=== PATIENT | male | born 1970 | race Caucasian/White ===

== ENCOUNTER → 2016-11-17 | Outpatient (CLI) | payer BC ==
[~2016-11-17] MED LIST: CLR10 PO; GABA-113 PO; TRAM-10 PO
--- NOTE | 2016-11-17 11:20 | DIAGNOSTIC IMAGING REPORT ---
CHEST 2 VIEWS ROUTINE CLINICAL HISTORY: Cough. COMPARISON STUDY: Chest radiograph August 11, 2015. FINDINGS: Lung volumes are normal. Lungs are clear. There is no pneumothorax or pleural effusion. Cardiac size is normal. Mediastinal contours are normal. IMPRESSION: No acute cardiopulmonary findings. Electronically signed by: Romulo Chinchilla M.D. 11/17/2016 11:19 AM Dictated Date/Time: 11/17/2016 11:17 AM
[2016-11-19 02:28] LABS: BORDETELLA PERTUSSIS SOURCE Swab
== END | disposition home or self-care (01) ==
LOC: C.RAD 10:45
PROVIDERS: ATTEND Internal Medicine
DX: R05 Cough (principal)

== ENCOUNTER → 2017-04-06 | Outpatient (CLI) | payer BC ==
[2017-04-06 17:47] LABS: BLOOD UREA NITROGEN 17 mg/dl (7-18); BUN/CREATININE RATIO 17.1 (10-20); CALCIUM 9.2 mg/dl (8.5-10.1); CARBON DIOXIDE 28 mmol/L (21-32); CHLORIDE 106 mmol/L (98-107); GLUCOSE 109 mg/dl (70-99); POTASSIUM 4.1 mmol/L (3.5-5.1); SODIUM 142 mmol/L (136-145)
== END | disposition home or self-care (01) ==
LOC: C.LABBFT 10:58
PROVIDERS: ATTEND Physician Assistant Medical
DX: I10 Essential (primary) hypertension (principal)

== ENCOUNTER 2018-02-19 13:16 | Emergency (ER) | payer BC, OTHER ==
[~2018-02-19] VITALS: Ht 175.3 cm; Wt 103.8 kg
[2018-02-19 13:19] VITALS: TEMP 36.9; Ht 175.3 cm; Wt 103.8 kg
[2018-02-19] MEDS ORDERED: SODIUM CHLORIDE 0.9% 1000ML 1,000 ML IV STA (13:51)
[2018-02-19] MEDS ORDERED: PRLSR20 PO (14:22)
[2018-02-19] MEDS ORDERED: AMLO-110 PO (14:22)
[2018-02-19] MEDS ORDERED: FEXO1TAB49 PO (14:22)
[2018-02-19] MEDS ORDERED: CHOL1000 PO (14:22)
[2018-02-19] MEDS ORDERED: MULT-600 PO (14:22)
[2018-02-19 14:28] LABS: BASO % 0.4 %; BASO ABS # 0.03 K/uL (0-0.2); EOS ABS # 0.28 K/uL (0-0.5); HEMOGLOBIN 15.1 g/dL (14.0-18.0); IG# 0.01 K/uL (0.00-0.02); LYMPH % 20.6 %; LYMPH ABS # 1.45 K/uL (1.2-3.4); MEAN CELL VOLUME 80.8 fL (80-100); MEAN CORPUSCULAR HEMOGLOBIN 28.4 pg (25-34); MEAN CORPUSCULAR HGB CONC 35.1 g/dl (32-36); MEAN PLATELET VOLUME 10.6 fL (7.4-10.4); MONO % 6.4 %; MONO ABS # 0.45 K/uL (0.11-0.59); NEUT % 68.5 %; NEUT ABS # 4.82 K/uL (1.4-6.5); PLATELET COUNT 218 K/uL (130-400); RED CELL DISTRIBUTION WIDTH CV 13.8 % (11.5-14.5); RED CELL DISTRIBUTION WIDTH SD 41.1 fL (36.4-46.3); WHITE BLOOD COUNT 7.04 K/uL (4.8-10.8)
[2018-02-19 14:43] LABS: ALBUMIN 3.6 gm/dl (3.4-5.0); ALT/SGPT 37 U/L (12-78); AST/SGOT 23 U/L (15-37); BLOOD UREA NITROGEN 17 mg/dl (7-18); CARBON DIOXIDE 27 mmol/L (21-32); CREATININE 1.17 mg/dl (0.60-1.40); GLUCOSE 141 mg/dl (70-99); LIPASE 115 U/L (73-393); POTASSIUM 3.6 mmol/L (3.5-5.1); SODIUM 138 mmol/L (136-145)
--- NOTE | 2018-02-19 14:43 | DIAGNOSTIC IMAGING REPORT ---
CT SCAN OF THE ABDOMEN AND PELVIS WITHOUT IV CONTRAST CLINICAL HISTORY: Left flank pain and hematuria. COMPARISON STUDY: No priors. TECHNIQUE: CT scan of the abdomen and pelvis is performed from the lung bases to the proximal femora. Images are reviewed in the axial, sagittal, and coronal planes. IV contrast was not administered for this examination. A dose lowering technique was utilized adhering to the principles of ALARA. CT DOSE: 1041.85 mGycm FINDINGS: Lung bases: The heart is normal in size and without pericardial effusion. There is a small calcified granuloma at the right lung base. No airspace consolidation or pleural effusion is identified. Liver: The unenhanced liver is normal in size, contour, and attenuation. There is no intrahepatic biliary ductal dilatation. Gallbladder: Unremarkable. Spleen: Normal in size and attenuation. Pancreas: Unremarkable. Adrenal glands: Unremarkable. Kidneys: The unenhanced kidneys are normal in size and without hydronephrosis. There are no renal calculi identified. There is no evidence of contour deforming renal mass lesion. Abdominal vasculature: The abdominal aorta is normal in course and caliber. Bowel: There are scattered colonic diverticula without CT evidence of acute diverticulitis. No bowel obstruction is seen. The appendix is well-visualized and normal. Peritoneum: There is no intraperitoneal free air or abdominal ascites. There is a small fat-containing umbilical hernia. Lymphadenopathy: None. Pelvic viscera: Evaluation of the pelvis is degraded by streak artifact from a right hip arthroplasty. The bladder, prostate, and seminal vesicles are normal as visualized. Skeletal structures: No lytic or blastic lesions are seen. A right hip or other plasty is in place. IMPRESSION: There are no acute infectious or inflammatory findings in the abdomen or pelvis. Electronically signed by: Timothy Sotelo M.D. 02/19/2018 2:41 PM Dictated Date/Time: 02/19/2018 2:34 PM
[2018-02-19 14:45] LABS: PTT PATIENT 26.4 SECONDS (21.0-31.0)
[2018-02-19 14:46] LABS: ALKALINE PHOSPHATASE 84 U/L (45-117); TOTAL PROTEIN 7.3 gm/dl (6.4-8.2)
[2018-02-19 16:32] VITALS: BP 153/89; PULSE 111; O2SAT 96
--- NOTE | 2018-02-19 19:29 | EMERGENCY ROOM VISIT NOTE ---
ED Visit Note First contact with patient: 13:33 Chief Complaint: I have blood in my urine. History of Present Illness: Mr. Lake is a 47 year-old white male who ambulates into the ED complaining of hematuria and previous left lower quadrant abdominal pain. Historically patient reports significant gastrointestinal or genitourinary diseases or surgeries. Patient reports he was seen at his PCPs office for left lower quadrant pain in the middle of last week. He reports his pain was mild. He reports laboratory tests were done and he has not received the results of those testing. He was discharged home in stable condition and a follow-up appointment has been set. Patient reports approximately 1 hour before he arrived in the emergency department he noted mild cramping in the left lower quadrant. At that time he rated his discomfort 1/10. He denies radiation of the pain. He then reports he went to the bathroom and he noted katie hematuria. And in the process of urinating he a clinic in the toilet and then had resolution of his discomfort. 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 He describes his bleeding as bright red. He has not taken any medications for his pain prior to urinating. Currently he is only associated symptom is hematuria and he denies fevers, chills, sweats, skin eruptions, skin color changes, upper respiratory tract symptoms, shortness of breath, chest pain, nausea, vomiting, diarrhea, constipation, rectal bleeding, black/tarry stools, urinary symptoms, back/flank pain. Review of Systems: As noted above in history of present illness. All body systems were reviewed and found to be negative as noted above. Past Medical History: Hypertension and status post right hip and left knee arthroplasty. Current Medications: Neela, Norvasc, multivitamins, Prilosec. Allergies to Medications: Iodine, diphenhydramine. Social History: Patient is currently employed; he feels safe in his home environment; he denies tobacco use and admits to alcohol use. Physical Examination: Vital Signs: Date Time Temp Pulse Resp B/P (MAP) Pulse Ox O2 Delivery O2 Flow Rate FiO2 02/19/18 16:32 111 25 153/89 96 02/19/18 16:16 111 25 96 02/19/18 16:11 153/89 02/19/18 14:10 104 12 133/93 95 Room Air 02/19/18 14:09 107 02/19/18 14:01 133/93 02/19/18 13:19 36.9 131 18 174/90 96 Room Air GENERAL: 57-year-old male in no acute distress, nontoxic-appearing, afebrile and hemodynamically stable. NEUROLOGICAL: Awake, alert and oriented to person, place and time. Answering questions appropriately and following commands. Normal gait. Good hand eye coordination. SKIN: Warm, dry and pink. No soft tissue eruptions or trauma noted. HEENT: Atraumatic and normocephalic. PERRLA. Sclera white and conjunctiva pink. Oral cavity moist and pink. Pharynx is nonerythematous or edematous. Speech normal. No lymphadenopathy. Trachea midline. No jugular venous distention. BACK: No tenderness over the bony spine. No CVA tenderness. THORAX: Lungs sounds are clear to auscultation and equal bilaterally with symmetrical chest wall. No wheezing, rales or rhonchi. No crepitus, tenderness , subcutaneous air or deformities noted. HEART: Regular rate and rhythm. No gallops, rubs or murmurs are appreciated. ABDOMEN: Obese, soft and nontender. Positive bowel sounds in all quadrants. No guarding, rigidity or organomegaly. EXTREMITIES: Moves all extremities well on command and with purpose. All distal neurovascular statuses are intact and equal bilaterally. ED Course: Patient is assessed as noted above. Laboratory Testing: Test 02/19/18 13:37 02/19/18 14:09 Range/Units Urine Color ORANGE Urine Appearance CLEAR CLEAR Urine pH 6.0 4.5-7.5 Urine Specific [place] 1.007 1.000-1.030 Urine Protein NEG NEG Urine Glucose (UA) NEG NEG Urine Ketones NEG NEG Urine Occult Blood 3+ NEG Urine Nitrite NEG NEG Urine Bilirubin NEG NEG Urine Urobilinogen NEG NEG Urine Leukocyte Esterase NEG NEG Urine WBC (Auto) 1-5 0-5 /hpf Urine RBC (Auto) >30 0-4 /hpf Urine Hyaline Casts (Auto) 1-5 0-5 /lpf Urine Epithelial Cells (Auto) 5-10 0-5 /lpf Urine Bacteria (Auto) NEG NEG White Blood Count 7.04 4.8-10.8 K/uL Red Blood Count 5.32 4.7-6.1 M/uL Hemoglobin 15.1 14.0-18.0 g/dL Hematocrit 43.0 42-52 % Mean Corpuscular Volume 80.8 80-100 fL Mean Corpuscular Hemoglobin 28.4 25-34 pg Mean Corpuscular Hemoglobin Concent 35.1 32-36 g/dl Platelet Count 218 130-400 K/uL Mean Platelet Volume 10.6 7.4-10.4 fL Neutrophils (%) (Auto) 68.5 % Lymphocytes (%) (Auto) 20.6 % Monocytes (%) (Auto) 6.4 % Eosinophils (%) (Auto) 4.0 % Basophils (%) (Auto) 0.4 % Neutrophils # (Auto) 4.82 1.4-6.5 K/uL Lymphocytes # (Auto) 1.45 1.2-3.4 K/uL Monocytes # (Auto) 0.45 0.11-0.59 K/uL Eosinophils # (Auto) 0.28 0-0.5 K/uL Basophils # (Auto) 0.03 0-0.2 K/uL RDW Standard Deviation 41.1 36.4-46.3 fL RDW Coefficient of Variation 13.8 11.5-14.5 % Immature Granulocyte % (Auto) 0.1 % Immature Granulocyte # (Auto) 0.01 0.00-0.02 K/uL Prothrombin Time 10.3 9.0-12.0 SECONDS Prothromb Time International Ratio 1.0 0.9-1.1 Activated Partial Thromboplast Time 26.4 21.0-31.0 SECONDS Partial Thromboplastin Ratio 1.0 Sodium Level 138 136-145 mmol/L Potassium Level 3.6 3.5-5.1 mmol/L Chloride Level 106 98-107 mmol/L Carbon Dioxide Level 27 21-32 mmol/L Anion Gap 5.0 3-11 mmol/L Blood Urea Nitrogen 17 7-18 mg/dl Creatinine 1.17 0.60-1.40 mg/dl Est Creatinine Clear Calc Drug Dose 92.7 ml/min Estimated GFR () 85.5 Estimated GFR (Non- 73.8 BUN/Creatinine Ratio 14.6 10-20 Random Glucose 141 70-99 mg/dl Calcium Level 9.0 8.5-10.1 mg/dl Total Bilirubin 0.4 0.2-1 mg/dl Direct Bilirubin < 0.1 0-0.2 mg/dl Aspartate Amino Transf (AST/SGOT) 23 15-37 U/L Alanine Aminotransferase (ALT/SGPT) 37 12-78 U/L Alkaline Phosphatase 84 45-117 U/L Total Protein 7.3 6.4-8.2 gm/dl Albumin 3.6 3.4-5.0 gm/dl Lipase 115 73-393 U/L Noncontrast Abdominal/Pelvic CT: Patient was hydrated with normal saline. Patient was reassessed multiple times during his stay in the emergency department. Patient's case was reviewed with Dr. Palacios; we agreed on diagnostic approach, treatment, disposition and plan. Patient was educated about today's findings and instructed on his treatment plan ; he verbalized understanding and agreement with this plan. Clinical Impression: Hematuria. Left lower quadrant abdominal pain. Decision-Making: Initially my differential diagnosis I considered ureter calculus, diverticulitis, pyelonephritis, bladder cancer and other causes. Disposition: Patient discharged home in stable condition; prior to departure he was reassessed and subjectively reported he was feeling pain and symptom-free. Plan: Patient was encouraged to use ibuprofen or acetaminophen as needed for pain every 6 hours. Patient was encouraged to monitor his urine for worsening bleeding. Patient was encouraged to stay well-hydrated. Patient was encouraged to follow-up with urology for definitive care and treatment. Patient was encouraged return the ED for worsening bleeding, any other abnormal bleeding, fevers or any new/concerning symptoms.
== END 2018-02-19 16:34 | disposition home or self-care (01) ==
LOC: C.EDB 13:17 → C.EDC 16:34
DX: R31.9 Hematuria, unspecified (principal); R10.32 Left lower quadrant pain; I10 Essential (primary) hypertension; Z96.641 Presence of right artificial hip joint; Z96.652 Presence of left artificial knee joint; Z79.899 Other long term (current) drug therapy; Z88.8 Allergy status to other drugs, medicaments and biological substances

== ENCOUNTER 2019-06-16 20:09 | Inpatient (IN) ==
--- OUTSIDE RECORDS SUMMARY | 2019-06-16 20:11 | External Medical Summary | Continuity of Care Document ---
:1970 Author Name Leigh Sarkar, Provider Address Unavailable Unavailable , Care Team Providers Name Role Phone Unavailable Unavailable Unavailable Mesha Harrison Unavailable [email or web address] [email or web address]. Unavailable Unavailable Unavailable Unavailable Unavailable Problems Abnormal glucose (790.29) (R73.09) Rash (782.1) (R21) Skin tag (701.9) (L91.8) Community acquired pneumonia (486) (J18.9) Fever (780.60) (R50.9) Osteoarthritis (715.90) Encounter for screening for malignant neoplasm of prostate ( V76.44) (Z12.5) Acute bronchitis (466.0) (J20.9) Cough (786.2) (R05) Hypertrophy of nasal turbinates (478.0) (J34.3) Acquired deviated nasal septum (470) (J34.2) Encounter for screening for cardiovascular disorders (V81.2) (Z13.6) Muscle cramps (729.82) (R25.2) Nephrolithiasis (592.0) (N20.0) Vitamin D deficiency (268.9) (E55.9) Obstructive sleep apnea of adult (327.23) (G47.33) Extrinsic asthma (493.00) (J45.909) Disc degeneration, lumbar (722.52) (M51.36) Hypertension (401.9) (I10) Hyperlipidemia (272.4) (E78.5) Allergic rhinitis (477.9) (J30.9) Bruxism (306.8) (F45.8) Snoring (786.09) (R06.83) Fatigue (780.79) (R53.83) Wheezing (786.07) (R06.2) Tick bite (919.4) (W57.XXXA) Total Hip Replacement Conductive hearing loss of left ear (389.05) (H90.12) Chronic serous otitis media of left ear (381.10) (H65.22) Retraction of tympanic membrane of left ear (384.82) (H73.89 2) Impacted cerumen of left ear (380.4) (H61.22) Allergies and Adverse Reactions Benadryl CAPS (Allergy) Iodine SOLN (Allergy) Animal dander (Allergy) Animal dander - Cats (Allergy) Pollen (Allergy) Medications Irbesartan 300 MG Oral Tablet; TAKE 1 TABLET DAILY DIRECTED. LOU Arredondo Start: 08-Mar-2018 Quantity: 30 Refills: 5 amLODIPine Besylate 5 MG Oral Tablet; Take 1 tablet by mouth daily. VIKTOR Lambert Start: 15-Feb-2018 Quantity: 30 Refills: 5 Atorvastatin Calcium 40 MG Oral Tablet; TAKE 1 TABLET AT BEDTIME. Mello Armenta Start: 08-Mar-2018 Quantity: 30 Refills: 5 Multi For Him Oral Capsule; TAKE DIRECTED. Mello Start: 15-Feb-2018 Refills: 0 PriLOSEC OTC 20 MG Oral Tablet Delayed Release; TAKE 1 TABLET DAILY. Mello Armenta Refills: 0 Vitamin D TABS , M.DDonte Refills: 0 Neela TABS , M.DDonte Refills: 0 Procedures History of Arthroscopy Knee Left Status: Completed History of Laminectomy Lumbar Status: Co mpleted History of Hip Replacement Status: Compl eted Immunizations Diphtheria-Tetanus Toxoids 2-5 LFU Intramuscular Injectable On: 22-Jan-1999 Influenza On: Aug-2011 Family History Mother Family history of Hypertension (V17.49) Status: Active Family history of Asthma (V17.5) Status: Active Brother Family history of Denial Of Any Significant Medical History Status: Active Family history of Hypertension (V17.49) Status: Active aunt Family history of malignant neoplasm of colon (V16.0) (Z80.0 ) Status: Active Father Family history of hypertension (V17.49) (Z82.49) Status: Act vidya Social History - Smoking Status Former smoker Plan of Treatment Planned Observations Planned Goals not documented Results No Known Results Results not documented Encounters Appointment; Leo Armenta M.D. 21-Aug-2018 13:30 Encounter Diagnosis: Problem not documented Appointment; Jose Raul Palacio DO 12-Jul-2018 10:00 Encounter Diagnosis: Problem not documented Appointment; Mesha Arredondo CRNP 08-Mar-2018 16:30 Encounter Diagnosis: Problem not documented Appointment; Mesha Arredondo CRNP 15-Feb-2018 16:00 Encounter Diagnosis: Problem not documented
[2019-06-16] MEDS ORDERED: ACETAMINOPHEN 1,000 MG/100 ML VIAL IV STA (20:20)
[2019-06-16] MEDS ORDERED: SODIUM CHLORIDE 0.9% 1000ML 1,000 ML IV ONE (20:20)
[2019-06-16 20:44] LABS: Basophils # (auto) 0.02 K/uL (0-0.2); Basophils % (auto) 0.2 %; Eosinophils # (auto) 0.26 K/uL (0-0.5); Eosinophils % (auto) 2.1 %; Hematocrit (blood only) 43.3 % (42-52); Hemoglobin 14.9 g/dL (14.0-18.0); Immature Granulocytes # (auto) 0.04 K/uL (0.00-0.02); Immature Granulocytes % (auto) 0.3 %; Lymphocytes % (auto) 11.9 %; Mean Corpuscular Hgb Conc 34.4 g/dL (32-36); Mean Corpuscular Volume 80.9 fL (80-100); Mean Platelet Volume 10.7 fL (7.4-10.4); Monocytes # (auto) 1.22 K/uL (0.11-0.59); Monocytes % (auto) 9.7 %; Neutrophils # (auto) 9.54 K/uL (1.4-6.5); Neutrophils % (auto) 75.8 %; Platelet Count 216 K/uL (130-400); RDW Coefficient of Variation 14.3 % (11.5-14.5); RDW Standard Deviation 42.2 fL (36.4-46.3); Red Blood Count 5.35 M/uL (4.7-6.1); White Blood Count 12.58 K/uL (4.8-10.8)
[2019-06-16 21:02] LABS: Alanine Aminotransferase 27 U/L (12-78); Albumin Level 3.8 gm/dl (3.4-5.0); Aspartate Aminotransferase 15 U/L (15-37); Bilirubin Direct < 0.1 mg/dl (0-0.2); Blood Urea Nitrogen 10 mg/dl (7-18); Calcium 9.2 mg/dl (8.5-10.1); Carbon Dioxide 27 mmol/L (21-32); Chloride 106 mmol/L (98-107); Creatinine Clr Calc Pharmacy 102.8 ml/min; Est GFR (African American) 97.3; Est GFR (Non-African American) 83.9; Glucose 122 mg/dl (70-99); Potassium 3.5 mmol/L (3.5-5.1); Sodium 140 mmol/L (136-145)
[2019-06-16 21:05] LABS: Alkaline Phosphatase 90 U/L (45-117); Bilirubin,Total 0.4 mg/dl (0.2-1); Total Protein 7.5 gm/dl (6.4-8.2)
[2019-06-16 21:07] LABS: Appearance Urine Clear (Clear); Bilirubin Urine Negative (Negative); Blood Urine Negative (Negative); Color Urine Yellow; Glucose Urine UA Negative (Negative); Ketones Urine Negative (Negative); Leukocyte Esterase Urine Negative (Negative); Nitrite Urine Negative (Negative); Protein Urine Negative (Negative); Specific Gravity Urine 1.007 (1.000-1.030); Urobilinogen Urine Negative (Negative); pH Urine 7.5 (4.5-7.5)
[2019-06-16] MEDS ORDERED: IOVERSOL 100ml IV PRN (21:45)
--- NOTE | 2019-06-16 22:02 | CT Scan Report ---
CT OF THE ABDOMEN AND PELVIS WITH CONTRAST CLINICAL HISTORY: Left lower quadrant pain, fever and tachycardia. Evaluate for acute diverticulitis. COMPARISON STUDY: CT of the abdomen and pelvis February 19, 2018. TECHNIQUE: Following IV administration of 89 mL of Optiray-320, axial images of the abdomen and pelvi s were obtained from the lung bases to the proximal femurs. Images were reviewed in the axial, sagitt al, and coronal planes. IV contrast was administered without complication. Automated exposure contro l was utilized for the study. A dose lowering technique was utilized adhering to the principles of A NICOLETTE. CT DOSE: 1090.55 mGy.cm FINDINGS: Lung bases are clear. The liver, spleen, adrenal glands, kidneys and pancreas are normal. T here is no biliary or pancreatic ductal dilatation. No hydronephrosis is present. Colonic diverticulo sis is noted. Note is made of wall thickening of the distal descending colon with moderate associated inflammation. A few locules of extraluminal gas are noted. There is no abscess. Right hip arthroplas ty is noted. Lucency within the right acetabulum is noted. No lymphadenopathy within the abdomen or p case is noted. Major vasculature is patent. IMPRESSION: Acute diverticulitis of the distal descending colon. Small amount of adjacent extraluminal gas consis tent with microperforation. Moderate inflammation. No abscess. Electronically signed by: Romulo Chinchilla M.D. 06/16/2019 10:00 PM
[2019-06-16] MEDS ORDERED: PIPERACILLIN/TAZOBACTAM 4.5 GM/120 ML BAG IV ONE (22:30)
[2019-06-16] MEDS ORDERED: HYDROmorphone INJ 1 MG/ML SYRINGE IV STA (22:48)
--- NOTE | 2019-06-16 23:34 | History & Physical Report ---
Date of Service June 16, 2019 Assessment & Plan (1) Diverticulitis of intestine with perforation: 49-year-old male with history of hypertension, seasonal allergies, L4-L5 degenerative disc disease presents with left lower quadrant abdominal pain which started today. Found to have distal descending colon diverticulitis with evidence of microperforation, no abscess Abdominal pain: Sepsis in the setting of distal descending colon diverticulitis with microperforation Febrile to 38.7, WBC 12.5, heart rate elevated to 110s, hypertensive LFT and lipase within normal limits CT abdomen:Distal descending colon diverticulitis with microperforation, no abscess Started on Zosyn in the ED, continue Zofran as needed for nausea Tylenol IV as needed and morphine as needed for pain N.p.o. for potential surgical intervention if patient deteriorates, on IV fluids LR 125 cc/h Continue to monitor clinically History of daily alcohol use Drinks 1-2 beers per day Reports going without drinking for months and denies any withdrawal symptoms or seizures Not started on alcohol withdrawal protocol this time Hypertension Patient reports being on medications but the medications did not help and thus he stopped taking them Recommend outpatient close follow-up for blood pressure Started on Lopressor 5 mg IV every 6 hours PRN for systolic blood pressure greater than 180 or diastolic blood pressure greater than 100 given elevated heart rate Allergies Continue home Neela DVT prophylaxis: SCDs, encourage ambulation, low risk Code: Full Disposition: PCU telemetry (2) HTN (hypertension): (3) Allergies: History of Present Illness Chief Complaint: LLQ abdominal pain Primary Care Provider: Leo Armenta MD 49-year-old male with history of hypertension, seasonal allergies, L4-L5 degenerative disc disease presents with left lower quadrant abdominal pain which started today. Reports pain started once patient was at work and got pr ogressively worse throughout the day. Developed fever and chills when patient arrived home from work at which point abdominal pain had worsened this patient came to the emergency room. Denies any nausea, vomiting, diarrhea, constipation, hematochezia, melena, hematuria, dysuria, chest pain, shortness of breath, headache, lightheadedness. No previous episodes of similar pain or diverticulitis. Patient has not had a colonoscopy yet. Past surgical history: L4-L5 microdiscectomy in 2012, left knee replacement, right hip replacement Social history: Patient reports drinking 1-2 beers per day has gone months without drinking and denies any withdrawal symptoms or seizures Allergies Allergy/AdvReac Type Severity Reaction Status Date / Time diphenhydramine Allergy Unknown Hives Unverified 06/16/19 20:55 iodine Allergy Unknown Rash,Itchin Unverified 06/16/19 20:55 g Home Medications Home Medications Medication Instructions Recorded Confirmed Type fexofenadine [Neela Allergy] 180 mg PO DAILY 06/16/19 06/16/19 History Past Med/Surg History Medical History No significant past medical history Social History Preferred Language: Tristanian Communication Ability: Effective Beliefs That Will Affect Care: None Current Living Situation: Spouse Feels Safe at Home: Yes Smoking Status: Former smoker Hx Alcohol Use: Yes Alcohol type: beer Hx Substance Use: No Review of Systems Review of Systems: As per HPI Physical Exam Physical Exam: General: In NAD HEENT: moist mucous membranes Neuro: A&O x 4 Pulm: CTAB equal breath sounds bilaterally CV: RRR, no m/r/g Abdomen:+BS, L sided abdominal TTP > over LLQ region, tympanic and somewhat distended, no rebound tenderness LE: no LE edema, no calf TTP Results & Data Vital Signs (Past 12 Hours) Vital Signs Temp Pulse Pulse Resp BP BP Pulse Ox 06/16/19 22:40 100 H 18 150/105 H 94 06/16/19 20:15 38.7 C H 117 H 20 180/94 H 95 Laboratory Results Abnormal lab results 06/16/19 06/16/19 Range/Units 20:36 20:36 WBC 12.58 H (4.8-10.8) K/uL MPV 10.7 H (7.4-10.4) fL Immature Gran # (Auto) 0.04 H (0.00-0.02) K/uL Neut # (Auto) 9.54 H (1.4-6.5) K/uL [place] # (Auto) 1.22 H (0.11-0.59) K/uL Glucose 122 H (70-99) mg/dl Diagnostic Findings CT OF THE ABDOMEN AND PELVIS WITH CONTRAST CLINICAL HISTORY: Left lower quadrant pain, fever and tachycardia. Evaluate for acute diverticulitis. COMPARISON STUDY: CT of the abdomen and pelvis February 19, 2018. TECHNIQUE: Following IV administration of 89 mL of Optiray-320, axial images of the abdomen and pelvis were obtained from the lung bases to the proximal femurs. Images were reviewed in the axial, sagittal, and coronal planes. IV contrast was administered without complication. Automated exposure control was utilized for the study. A dose lowering technique was utilized adhering to the principles of ALARA. CT DOSE: 1090.55 mGy.cm FINDINGS: Lung bases are clear. The liver, spleen, adrenal glands, kidneys and pancreas are normal. There is no biliary or pancreatic ductal dilatation. No hydronephrosis is present. Colonic diverticulosis is noted. Note is made of wall thickening of the distal descending colon with moderate associated inflammation. A few locules of extraluminal gas are noted. There is no abscess. Right hip arthroplasty is noted. Lucency within the right acetabulum is noted. No lymphadenopathy within the abdomen or pelvis is noted. Major vasculature is patent. IMPRESSION: Acute diverticulitis of the distal descending colon. Small amount of adjacent extraluminal gas consistent with microperforation. Moderate inflammation. No abscess. Code Status & VTE Plan Code Status Full VTE Prophylaxis Plan VTE Prophylaxis will be ordered: Yes Supervising Physician Co-Signing Physician Notes Attending addendum: I have physically seen this patient, have supervised the medical residents activities, and agree with the H&P unless as otherwise noted. Assessment and Plan: Acute diverticulitis of distal descending colon with microperforation- N.p.o. Continue Zosyn IV begun in ED. Acetaminophen 1 g IV every 8 hours PRN mild pain or temperature. Morphine 2 mg IV every 4 hours as needed severe pain. LR at 125 mils per hour. Famotidine 20 mg IV every 12 hours. Follow serial laboratories. Consult general surgery. Remaining orders and notations as noted. PG Care Time/CCT Total # of Minutes Spent Total Time Spent with Patient: Total time spent is greater than 50% in coordination of care (as documented) at patient's floor/unit and/or counseling patient: Resident Activity Tracking Resident Involvement: Resident Care Provided Care Provided: Adult Hospital Medicine (1) Diverticulitis of intestine with perforation Diverticulitis bleeding: unspecified bleeding status Diverticulitis site: unspecified part of intestinal tract Qualified Code(s): K57.80 - Diverticulitis of intestine, part unspecified, with perforation and abscess without bleeding
--- NOTE | 2019-06-16 23:39 | Emergency Department Note ---
Entered by Camille Downey acting as a scribe for Valdo Herrera History of Present Illness General Chief complaint: Abdominal Pain Stated complaint: ABDOMINAL PAIN Time Seen by Provider: 06/16/19 20:18 Source: patient History of Present Illness Provider complaint: abdominal pain Onset (ago): hour(s) (this morning ) Location: abdomen and left (lower ) Pain Consistency: + constant Maximum Pain Intensity: 10 Relieved By: + none Associated symptoms: + other (-diarrhea, -pain during urination, -bloody or dark stools, ); no cough and no nausea/vomiting The patient is a 49 year old male who presents to the Emergency Room with complaints of constant left lower abdominal pain that started this morning. He denies any nausea, vomiting, diarrhea, pain during urination, bloody or dark s tools, or cough. He reports having a fever that began earlier tonight. Pain does not radiate. Pain is severe in nature. Home Medications Home Medications Medication Instructions Recorded Confirmed Type fexofenadine [Neela Allergy] 180 mg PO DAILY 06/16/19 06/16/19 History Allergies Allergy/AdvReac Type Severity Reaction Status Date / Time diphenhydramine Allergy Unknown Hives Unverified 06/16/19 20:55 iodine Allergy Unknown Rash,Itchin Unverified 06/16/19 20:55 g Past Med/Surg History Medical History No significant past medical history Social History Preferred Language: Zimbabwean Feels Safe at Home: Yes Smoking Status: Never smoker Review of Systems See HPI for pertinent positives & negatives. and A total of 10 systems reviewed and were otherwise negative Physical Exam Vital Signs Vital Signs - 24 hr 06/16/19 20:15 06/16/19 22:40 Temperature 38.7 C H Temperature Source Oral Sepsis Recent Fever Within 48 Hours No Sepsis New/Unexplained Change in Mental Status No Sepsis Action Taken by Nursing No Action Required Pulse Rate 117 H Pulse Rate [Finger] 100 H Respiratory Rate 20 18 Blood Pressure 180/94 H Blood Pressure [Right Arm] 150/105 H Blood Pressure Mean 122 Blood Pressure Mean [Right Arm] 120 Pulse Oximetry 95 94 Oxygen Delivery Method Room Air Physical Exam GENERAL: He is oriented to person, place, and time. He appears well-developed and well-nourished. He does not appear distressed. ____ HENT: Exam performed. - Head: Normocephalic and atraumatic. - Right Ear: External ear normal. No mastoid tenderness. - Left Ear: External ear normal. No mastoid tenderness. - Mouth/Throat: The oropharynx is clear and moist. No trismus in the jaw. No dental abscesses or uvula swelling. No oropharyngeal exudate or tonsillar absces ses. ____ EYES: Conjunctivae and EOM are normal. Pupils are equal, round, and reactive to light. Right eye exhibits no discharge. Left eye exhibits no discharge. No scleral icterus. ____ NECK: Normal range of motion. Neck supple. No JVD present. No spinous process tenderness present. No carotid bruit present. No rigidity. No tracheal deviation and normal range of motion present. No Brudzinski's sign and no Kernig's sign noted. ____ CV: Normal rate, regular rhythm, normal heart sounds and intact distal pulses. There is no peripheral edema. Palpable radial pulses bue. ____ PULM/CHEST: Effort normal and breath sounds normal. No respiratory distress. No stridor. He has no wheezes. He has no rales. - Chest Wall: He exhibits no tenderness. ____ ABD: The abdomen is soft. Bowel sounds are normal. He has no distension. No mass is present. Pain on palpation of left lower quadrant. There is no rebound, no guarding, no Tracey's sign and no tenderness at McBurney's point. Rovsig negative MUSC/SKEL: Normal range of motion. There is no peripheral edema, tenderness or deformity. LYMPH: No cervical adenopathy. ____ NEURO: He is alert and oriented to person, place, and time. He has normal strength. No cranial nerve deficit or sensory deficit. Coordination and gait normal. GCS eye subscore is 4. GCS verbal subscore is 5. GCS motor subscore is 6. cerbellar tests wnl. ____ SKIN: Skin is warm and dry. He is not diaphoretic. ____ PSYCH: He has a normal mood and affect. His behavior is normal. Judgment and thought content normal. ____ Course 2019: The patient was evaluated in room C2B, and a complete history and physical examination were performed. 2235: Labs show leukocytosis of 12.[address] shows diverticulitis with micrope rforation. I discussed with Dr. Quinonez- [facility] General Surgery, he recommends that the patient be admitted to the hospitalist service and that he will be on consult. Dr. Horton- [facility] Hospitalist, was notified and IV antibiotics Zosyn were given. Administered Medications Piperacillin Sod/Tazobactam Sod (Zosyn) 4.5 gm in 120 mls @ 30 mls/hr IV NOW ONE Stop: 06/17/19 02:29 Last Admin: 06/16/19 22:41 Dose: 30 mls/hr Documented by: [id number] Ioversol (Optiray 320 100ml) 89 ml IV ONCE PRN PRN Reason: Interaction Checking Stop: 06/20/19 21:44 Last Admin: 06/16/19 21:46 Dose: 89 ml Documented by: [id number] Discontinued Medications Hydromorphone HCl (Dilaudid) 1 mg IV NOW STA Stop: 06/16/19 22:49 Last Admin: 06/16/19 22:59 Dose: 1 mg Documented by: [id number] Acetaminophen (Ofirmev) 1,000 mg in 100 mls @ 400 mls/hr IV NOW STA Stop: 06/16/19 20:34 Last Infusion: 06/16/19 21:37 Dose: 0 mls/hr Documented by: [id number] Admin: 06/16/19 20:46 Dose: 400 mls/hr Documented by: [id number] Sodium Chloride (Nss 1000ml) 1,000 mls @ 999 mls/hr IV .Q1H1M ONE Stop: 06/16/19 21:20 Last Infusion: 06/16/19 22:43 Dose: 0 mls/hr Documented by: [id number] Admin: 06/16/19 20:46 Dose: 999 mls/hr Documented by: [id number] Medical Decision Making Medical Records Attestation: I reviewed the patient's medical records. Home Medications Current Medication List: was personally reviewed by me Laboratory Data Attestation: I reviewed the patient's lab results. Result diagrams: 06/16/19 20:36 06/16/19 20:36 Lab Results 06/16/19 06/16/19 06/16/19 Range/Units 20:36 20:36 20:37 WBC 12.58 H (4.8-10.8) K/uL RBC 5.35 (4.7-6.1) M/uL Hgb 14.9 (14.0-18.0) g/dL Hct 43.3 (42-52) % MCV 80.9 (80-100) fL MCH 27.9 (25-34) pg MCHC 34.4 (32-36) g/dL RDW Std Deviation 42.2 (36.4-46.3) fL RDW Coeff of Rangel 14.3 (11.5-14.5) % Plt Count 216 (130-400) K/uL MPV 10.7 H (7.4-10.4) fL Immature Gran % (Auto) 0.3 % Neut % (Auto) 75.8 % Lymph % (Auto) 11.9 % [place] % (Auto) 9.7 % Eos % (Auto) 2.1 % Baso % (Auto) 0.2 % Immature Gran # (Auto) 0.04 H (0.00-0.02) K/uL Neut # (Auto) 9.54 H (1.4-6.5) K/uL Lymph # (Auto) 1.50 (1.2-3.4) K/uL [place]hing # (Auto) 1.22 H (0.11-0.59) K/uL Eos # (Auto) 0.26 (0-0.5) K/uL Baso # (Auto) 0.02 (0-0.2) K/uL Sodium 140 (136-145) mmol/L Potassium 3.5 (3.5-5.1) mmol/L Chloride 106 (98-107) mmol/L Carbon Dioxide 27 (21-32) mmol/L Anion Gap 8.0 (3-11) BUN 10 (7-18) mg/dl Creatinine 1.04 (0.6-1.4) mg/dl Est Cr Clr Drug Dosing 102.8 ml/min Est GFR ( Amer) 97.3 Est GFR (Non-Af Amer) 83.9 BUN/Creatinine Ratio 10.0 (10-20) Glucose 122 H (70-99) mg/dl Calcium 9.2 (8.5-10.1) mg/dl Total Bilirubin 0.4 (0.2-1) mg/dl Direct Bilirubin < 0.1 (0-0.2) mg/dl AST 15 (15-37) U/L ALT 27 (12-78) U/L Alkaline Phosphatase 90 (45-117) U/L Total Protein 7.5 (6.4-8.2) gm/dl Albumin 3.8 (3.4-5.0) gm/dl Lipase 78 (73-393) U/L Urine Color Yellow Urine Appearance Clear (Clear) Urine pH 7.5 (4.5-7.5) Ur Specific [place] 1.007 (1.000-1.030) Urine Protein Negative (Negative) Urine Glucose (UA) Negative (Negative) Urine Ketones Negative (Negative) Urine Blood Negative (Negative) Urine Nitrite Negative (Negative) Urine Bilirubin Negative (Negative) Urine Urobilinogen Negative (Negative) Ur Leukocyte Esterase Negative (Negative) Imaging Data Radiologist's Impression: Radiology results as stated below per my review and the radiologist's interpretation: CT OF THE ABDOMEN AND PELVIS WITH CONTRAST CLINICAL HISTORY: Left lower quadrant pain, fever and tachycardia. Evaluate for acute diverticulitis. COMPARISON STUDY: CT of the abdomen and pelvis February 19, 2018. TECHNIQUE: Following IV administration of 89 mL of Optiray-320, axial images of the abdomen and pelvis were obtained from the lung bases to the proximal femurs. Images were reviewed in the axial, sagittal, and coronal planes. IV contrast was administered without complication. Automated exposure control was utilized for the study. A dose lowering technique was utilized adhering to the principles of ALARA. CT DOSE: 1090.55 mGy.cm FINDINGS: Lung bases are clear. The liver, spleen, adrenal glands, kidneys and pancreas are normal. There is no biliary or pancreatic ductal dilatation. No hydronephrosis is present. Colonic diverticulosis is noted. Note is made of wall thickening of the distal descending colon with moderate associated inflammation. A few locules of extraluminal gas are noted. There is no abscess. Right hip arthroplasty is noted. Lucency within the right acetabulum is noted. No lymphadenopathy within the abdomen or pelvis is noted. Major vasculature is patent. IMPRESSION: Acute diverticulitis of the distal descending colon. Small amount of adjacent extraluminal gas consistent with microperforation. Moderate inflammation. No abscess. Electronically signed by: Romulo Chinchilla M.D. 06/16/2019 10:00 PM Blood Pressure Blood Pressure Findings: Elevated blood pressure Blood Pressure Disposition: further management by hospitalist MDM Narrative Labs show leukocytosis of 12.[address] shows diverticulitis with microperforation. I discussed with Dr. Quinonez- [facility] General Surgery, he recommends that the patient be admitted to the hospitalist service and that he will be on consult. Dr. Horton- [facility] Hospitalist, was notified and IV antibiotics Zosyn were given. Impression & Plan Diverticulitis of intestine with perforation Discharge Plan Visit Data Chief Complaint: Abdominal Pain Stated Complaint: ABDOMINAL PAIN ED Provider: Valdo Herrera Discharge Problem: Diverticulitis of intestine with perforation Patient Disposition: Being Evaluated by Hospitalist Forms Stand Alone Forms: Call Back Authorization, [facility] Prescriptions Prescriptions: No Action fexofenadine [Neela Allergy] 180 mg Tablet 180 mg PO DAILY RF: 0 Referrals Referrals: Derrick Armenta MD [Primary Care Provider] - Discharge Problem: Diverticulitis of intestine with perforation Qualifiers: Diverticulitis site: unspecified part of intestinal tract Diverticulitis bleeding: unspecified bleeding status Qualified Code(s): K57.80 - Diverticulitis of intestine, part unspecified, with perforation and abscess without bleeding The scribe's documentation has been prepared under my direction and personally reviewed by me in its entirety. I confirm that the note above accurately reflects all work, treatment, procedures, and medical decision making performed by me.
[2019-06-17] MEDS ORDERED: METOPROLOL TARTRATE 1 MG/ML VIAL IV PRN (00:50)
[2019-06-17] MEDS ORDERED: PIPERACILL/TAZOBAC CONSULT ACTIVE PRN (00:50)
[2019-06-17] MEDS ORDERED: ONDANSETRON INJ 2 MG/ML 2 ML VIAL IV PRN (00:50)
[2019-06-17] MEDS: LACTATED RINGER'S 1,000 ML IV SCH ×3 (01:18→16:26)
[2019-06-17] MEDS: MoRPHine SULFATE 2 MG/ML CARP IV PRN ×2 (02:59→16:27)
[2019-06-17] MEDS: PIPERACILLIN/TAZOBACTAM 4.5 GM in DEXTROSE 5% 100 ML IV SCH ×3 (03:35→19:56)
[2019-06-17] MEDS ORDERED: PIPERACILLIN/TAZOBACTAM 4.5 GM in DEXTROSE 5% 100 ML IV SCH (06:00)
[2019-06-17] MEDS ORDERED: LORazepam 0.5 MG TAB ONE (06:08)
[2019-06-17 06:37] LABS: Basophils # (auto) 0.02 K/uL (0-0.2); Basophils % (auto) 0.2 %; Eosinophils # (auto) 0.11 K/uL (0-0.5); Eosinophils % (auto) 0.9 %; Immature Granulocytes # (auto) 0.03 K/uL (0.00-0.02); Immature Granulocytes % (auto) 0.2 %; Lymphocytes # (auto) 1.16 K/uL (1.2-3.4); Mean Corpuscular Hgb Conc 33.3 g/dL (32-36); Mean Corpuscular Volume 81.4 fL (80-100); Mean Platelet Volume 10.5 fL (7.4-10.4); Monocytes # (auto) 1.05 K/uL (0.11-0.59); Monocytes % (auto) 8.2 %; Neutrophils # (auto) 10.46 K/uL (1.4-6.5); Neutrophils % (auto) 81.5 %; Platelet Count 189 K/uL (130-400); RDW Coefficient of Variation 14.4 % (11.5-14.5); RDW Standard Deviation 42.9 fL (36.4-46.3); Red Blood Count 5.16 M/uL (4.7-6.1); White Blood Count 12.83 K/uL (4.8-10.8)
[2019-06-17] MEDS: FEXOFENADINE HCL 180 MG TAB PO SCH (07:59)
--- NOTE | 2019-06-17 09:22 | Surgery Consultation ---
Date of Consultation June 17, 2019 Assessment & Plan (1) Diverticulitis of intestine with perforation: 49 year-old male presented to emergency department with 1 day history of LLQ abdominal pain and associated fevers. CT scan showing distal descending diverticulitis with microperforation however no abscess. Febrile on admission, tachycardic, and leukocytosis of 12K. Pain improved today but still feeling bloated. Passing flatus. Leukocytosis stable. Abdomen is distended but soft, tender in LLQ no peritonitis or rigidity. Plan: Continue conservative treatment with bowel rest, IV fluids, IV Zosyn, IV Zofran prn nausea, and IV Pain medications as needed repeat am labs Will need outpatient colonoscopy in 6-8 weeks Will continue to follow Dr. Lea was present during my examination and agrees with above. History of Present Illness Reason for Consultation: Diverticulitis with microperforation Requesting Physician: MD Wes Attending Physician: Julianna Harvey MD History of Present Illness 49 year-old male who presented to emergency department with complaint fo left lower quadrant abdominal pain that began yesterday with associated fevers. States pain was sharp and 10/10 on admission. No prior history of similar pain. Denies of any nausea, vomiting, changes in bowel habits, diarrhea, constipation, blood in stools. CT scan showing diverticulitis of the distal descending colon with microperforation however no abscess. Febrile on admission. No prior history of diverticulitis. Has not had screening colonoscopy. No family history of diverticulitis. Since admission, abdominal pain has improved. Currently rating 6/10. Nonausea or vomiting. Labs show stable leukocytosis of 12K. Allergies Allergy/AdvReac Type Severity Reaction Status Date / Time diphenhydramine Allergy Unknown Hives Unverified 06/16/19 20:55 iodine Allergy Unknown Rash,Itchin Unverified 06/16/19 20:55 g Home Medications Home Medications Medication Instructions Recorded Confirmed Type fexofenadine [Neela Allergy] 180 mg PO DAILY 06/16/19 06/16/19 History Patient History Medical History No significant past medical history Social History Preferred Language: Australian Communication Ability: Effective Beliefs That Will Affect Care: None Current Living Situation: Spouse Feels Safe at Home: Yes Smoking Status: Former smoker Hx Alcohol Use: Yes Alcohol type: beer Hx Substance Use: No Review of Systems Review of Systems: All systems reviewed & are unremarkable except as noted in HPI & below Physical Exam Constitutional: WD/WN, vitals as above not ill appearing Respiratory: normal respiratory effort, lungs clear to auscultation Cardiovascular: Rate/Rhythm: regular rate, regular rhythm and + tachycardic Heart Sounds: normal S1 and normal S2 Gastrointestinal (Abdomen): Inspection/Auscultation: abdomen normal to inspection, + abdomen distended and normal bowel sounds Percussion/Palpation: + abdomen tender (LLQ on deep palpation) and abdomen soft; no guarding and abdomen not rigid Skin: no rashes, warm and dry Psychiatric: A+Ox3, euthymic affect Results & Data Vital Signs (Past 12 Hours) Vital Signs Temp Pulse Pulse Resp BP Pulse Ox 06/17/19 07:24 37.5 C 102 H 18 150/97 H 94 06/17/19 03:39 37.0 C 94 H 16 166/87 H 95 06/17/19 00:45 37.0 C 100 H 18 166/98 H 95 06/17/19 00:32 92 H 18 93 06/16/19 23:53 37.3 C 06/16/19 22:40 100 H 18 150/105 H 94 Laboratory Results 06/17/19 06/16/19 06/16/19 Range/Units 06:11 20:37 20:36 WBC 12.83 H (4.8-10.8) K/uL RBC 5.16 (4.7-6.1) M/uL Hgb 14.0 (14.0-18.0) g/dL Hct 42.0 (42-52) % MCV 81.4 (80-100) fL MCH 27.1 (25-34) pg MCHC 33.3 (32-36) g/dL RDW Std Deviation 42.9 (36.4-46.3) fL RDW Coeff of Rangel 14.4 (11.5-14.5) % Plt Count 189 (130-400) K/uL MPV 10.5 H (7.4-10.4) fL Immature Gran % (Auto) 0.2 % Neut % (Auto) 81.5 % Lymph % (Auto) 9.0 % [place] % (Auto) 8.2 % Eos % (Auto) 0.9 % Baso % (Auto) 0.2 % Immature Gran # (Auto) 0.03 H (0.00-0.02) K/uL Neut # (Auto) 10.46 H (1.4-6.5) K/uL Lymph # (Auto) 1.16 L (1.2-3.4) K/uL [place] # (Auto) 1.05 H (0.11-0.59) K/uL Eos # (Auto) 0.11 (0-0.5) K/uL Baso # (Auto) 0.02 (0-0.2) K/uL Sodium 140 (136-145) mmol/L Potassium 3.5 (3.5-5.1) mmol/L Chloride 106 (98-107) mmol/L Carbon Dioxide 27 (21-32) mmol/L Anion Gap 8.0 (3-11) BUN 10 (7-18) mg/dl Creatinine 1.04 (0.6-1.4) mg/dl Est Cr Clr Drug Dosing 102.8 ml/min Est GFR ( Amer) 97.3 Est GFR (Non-Af Amer) 83.9 BUN/Creatinine Ratio 10.0 (10-20) Glucose 122 H (70-99) mg/dl Calcium 9.2 (8.5-10.1) mg/dl Total Bilirubin 0.4 (0.2-1) mg/dl Direct Bilirubin < 0.1 (0-0.2) mg/dl AST 15 (15-37) U/L ALT 27 (12-78) U/L Alkaline Phosphatase 90 (45-117) U/L Total Protein 7.5 (6.4-8.2) gm/dl Albumin 3.8 (3.4-5.0) gm/dl Lipase 78 (73-393) U/L Urine Color Yellow Urine Appearance Clear (Clear) Urine pH 7.5 (4.5-7.5) Ur Specific [place] 1.007 (1.000-1.030) Urine Protein Negative (Negative) Urine Glucose (UA) Negative (Negative) Urine Ketones Negative (Negative) Urine Blood Negative (Negative) Urine Nitrite Negative (Negative) Urine Bilirubin Negative (Negative) Urine Urobilinogen Negative (Negative) Ur Leukocyte Esterase Negative (Negative) 06/16/19 Range/Units 20:36 WBC 12.58 H (4.8-10.8) K/uL RBC 5.35 (4.7-6.1) M/uL Hgb 14.9 (14.0-18.0) g/dL Hct 43.3 (42-52) % MCV 80.9 (80-100) fL MCH 27.9 (25-34) pg MCHC 34.4 (32-36) g/dL RDW Std Deviation 42.2 (36.4-46.3) fL RDW Coeff of Rangel 14.3 (11.5-14.5) % Plt Count 216 (130-400) K/uL MPV 10.7 H (7.4-10.4) fL Immature Gran % (Auto) 0.3 % Neut % (Auto) 75.8 % Lymph % (Auto) 11.9 % [place] % (Auto) 9.7 % Eos % (Auto) 2.1 % Baso % (Auto) 0.2 % Immature Gran # (Auto) 0.04 H (0.00-0.02) K/uL Neut # (Auto) 9.54 H (1.4-6.5) K/uL Lymph # (Auto) 1.50 (1.2-3.4) K/uL [place] # (Auto) 1.22 H (0.11-0.59) K/uL Eos # (Auto) 0.26 (0-0.5) K/uL Baso # (Auto) 0.02 (0-0.2) K/uL Sodium (136-145) mmol/L Potassium (3.5-5.1) mmol/L Chloride (98-107) mmol/L Carbon Dioxide (21-32) mmol/L Anion Gap (3-11) BUN (7-18) mg/dl Creatinine (0.6-1.4) mg/dl Est Cr Clr Drug Dosing ml/min Est GFR ( Amer) Est GFR (Non-Af Amer) BUN/Creatinine Ratio (10-20) Glucose (70-99) mg/dl Calcium (8.5-10.1) mg/dl Total Bilirubin (0.2-1) mg/dl Direct Bilirubin (0-0.2) mg/dl AST (15-37) U/L ALT (12-78) U/L Alkaline Phosphatase (45-117) U/L Total Protein (6.4-8.2) gm/dl Albumin (3.4-5.0) gm/dl Lipase (73-393) U/L Urine Color Urine Appearance (Clear) Urine pH (4.5-7.5) Ur Specific [place] (1.000-1.030) Urine Protein (Negative) Urine Glucose (UA) (Negative) Urine Ketones (Negative) Urine Blood (Negative) Urine Nitrite (Negative) Urine Bilirubin (Negative) Urine Urobilinogen (Negative) Ur Leukocyte Esterase (Negative) Diagnostic Findings CT OF THE ABDOMEN AND PELVIS WITH CONTRAST CLINICAL HISTORY: Left lower quadrant pain, fever and tachycardia. Evaluate for acute diverticulitis. COMPARISON STUDY: CT of the abdomen and pelvis February 19, 2018. TECHNIQUE: Following IV administration of 89 mL of Optiray-320, axial images of the abdomen and pelvis were obtained from the lung bases to the proximal femurs. Images were reviewed in the axial, sagittal, and coronal planes. IV contrast was administered without complication. Automated exposure control was utilized for the study. A dose lowering technique was utilized adhering to the principles of ALARA. CT DOSE: 1090.55 mGy.cm FINDINGS: Lung bases are clear. The liver, spleen, adrenal glands, kidneys and pancreas are normal. There is no biliary or pancreatic ductal dilatation. No hydronephrosis is present. Colonic diverticulosis is noted. Note is made of wall thickening of the distal descending colon with moderate associated inflammation. A few locules of extraluminal gas are noted. There is no abscess. Right hip arthroplasty is noted. Lucency within the right acetabulum is noted. No lymphadenopathy within the abdomen or pelvis is noted. Major vasculature is patent. IMPRESSION: Acute diverticulitis of the distal descending colon. Small amount of adjacent extraluminal gas consistent with microperforation. Moderate inflammation. No abscess. (1) Diverticulitis of intestine with perforation Diverticulitis bleeding: unspecified bleeding status Diverticulitis site: unspecified part of intestinal tract Qualified Code(s): K57.80 - Diverticulitis of intestine, part unspecified, with perforation and abscess without bleeding
--- NOTE | 2019-06-17 09:30 | Family Medicine Progress Note ---
Date of Service June 17, 2019 Assessment & Plan (1) Diverticulitis of intestine with perforation: Mr. Lake is a 49-year-old male with history of hypertension, seasonal allergies, L4-L5 degenerative disc disease who presented to [facility] with a 1 day history of left lower quadrant abdominal pain. He was found to have distal descending colon diverticulitis with evidence of microperforation, no abscess Sepsis secondary to distal descending colon diverticulitis with microperforation - initially presented with a fever to 38.7, WBC 12.5, and tachycardia - CT abdomen: Distal descending colon diverticulitis with microperforation, no abscess - Started on Zosyn in the ED, continue IV abx until improvement in abdominal tenderness -> can transition to augmentin or cipro/flagyl on d/c for a total of 10 days - Zofran as needed for nausea - Tylenol IV as needed and morphine as needed for pain - remains n.p.o, will advance diet to clears later this afternoon provided his pain improves - continue LR at 125 mls/hr until tolerating PO - afebrile since admission, abdominal pain improving - general surgery consulted, thank you for recommendations -> continue conservative treatment -> outpatient colonoscopy in 6-8 weeks History of daily alcohol use - Drinks 1-2 beers per day - Reports going without drinking for months and denies any withdrawal symptoms or seizures - Not started on alcohol withdrawal protocol this time, continue to monitor Hypertension - not currently on medications for this. Patient reports being on medications in the past, but he stopped taking them - discussed w/patient this AM. He will f/u with his PCP to discuss this - he states his home BPs are usually 150s systolic, and would therefore benefit from treatment Allergies - Continue home Neela DVT prophylaxis: SCDs, encourage ambulation, low risk Code: Full Disposition: Transfer to med/surg today (2) HTN (hypertension): (3) Allergies: Supervising Physician Co-Signing Physician Notes Resident Physician Supervision Note: I independently interviewed and examined the patient and verified the guajardo history and physical, reviewed labs and image studies, discussed the case with the resident Dr. Valencia and agree with the findings and care plan. Subjective Mr. Lake reports he feels improved today. He states his abdominal pain is down to a 6/10. He denies having any bowel movements today, and states his last bowel movement was yesterday afternoon. He denies fever, chills. He has never had a colonoscopy before, and this is first episode of diverticulitis. He does note that he was on blood pressure medications in the past, however never saw improvement in his blood pressure despite taking the medications, so he stopped taking them. He states he normally runs in the 150s systolic at home. Review of Systems Constitutional: no fever, no chills and no fatigue Respiratory: no cough and no dyspnea Cardiovascular: no chest pain, no palpitations and no edema Gastrointestinal: + abdominal pain; no nausea, no vomiting and no change in bowel habits Physical Exam Constitutional: WD/WN, vitals as above Respiratory: normal respiratory effort, lungs clear to auscultation Cardiovascular: RRR, no murmur, no edema Gastrointestinal (Abdomen): Inspection/Auscultation: + abdomen distended Percussion/Palpation: + abdomen tender (Minimally tender in left lower quadrant) and abdomen soft; no guarding and abdomen not rigid Skin: no rashes, warm and dry Results & Data Vital Signs (Past 12 Hours) Vital Signs Temp Pulse Pulse Resp BP Pulse Ox 06/17/19 07:24 37.5 C 102 H 18 150/97 H 94 06/17/19 03:39 37.0 C 94 H 16 166/87 H 95 06/17/19 00:45 37.0 C 100 H 18 166/98 H 95 06/17/19 00:32 92 H 18 93 06/16/19 23:53 37.3 C 06/16/19 22:40 100 H 18 150/105 H 94 PG Care Time/CCT Total # of Minutes Spent Total Time Spent with Patient: Total time spent is greater than 50% in coordination of care (as documented) at patient's floor/unit and/or counseling patient: Resident Activity Tracking Resident Involvement: Resident Care Provided Care Provided: Adult Hospital Medicine (1) Diverticulitis of intestine with perforation Diverticulitis bleeding: unspecified bleeding status Diverticulitis site: unspecified part of intestinal tract Qualified Code(s): K57.80 - Diverticulitis of intestine, part unspecified, with perforation and abscess without bleeding
[2019-06-17] MEDS: ACETAMINOPHEN 1,000 MG/100 ML VIAL IV PRN ×2 (10:21→18:09)
--- NOTE | 2019-06-17 11:58 | Medical Student H&P ---
Date of Service June 17, 2019 Impression / Recommendations Risk Factors Assessment HTN: -We discussed dietary modification to address both his HTN and diverticulitis. He is interested in reducing sodium intake and increasing dietary fiber. He states that he has already been making an effort to reduce pasta consumption, and he rarely consumes red meat. -Dante states that he is going to follow up with his PCP to discuss medication options for his HTN. Diverticulitis: -Dante states that a colonoscopy is currently being scheduled for him, which he plans to undergo in 6-8 weeks. Prediabetes: - Due to the finding of hyperglycemia during his admission, Dante and I discussed his history of elevated blood sugar. He states that it has been high several times before during routine blood work, but he denies any knowledge of HbA1c investigation or medication management. He states that he will discuss his blood sugar with his PCP if it is elevated the next time that he undergoes blood work, and he states that he hopes that his recent weight loss and soda elimination helps his blood sugar. History & Physical Identifying Data DANTE LAKE is a 49-year-old M admitted on June 16, 2019 23:17 who currently lives in [] [alone] with []. DANTE LAKE was admitted on a [201 voluntary] [302 involuntary] commitment. Patient is admitted from [home] [transfer from the medical floor]. The patient was brought to the ED by the [police] [family] [ambulance] [self transport]. Information provided by the patient is considered to be [reliable] [unreliable]. Chief Complaint "[abdominal pain]". History of Present Illness Dante Lake is a 49 y/o male who with a Hx of uncontrolled HTN who presented to [facility] ED on June 16 complaining of acute-onset LLQ pain. He states that the pain began while at work and gradually worsened throughout the day. He states that the pain became constant and localized to the LLQ without radiation. He also states that he developed chills and a fever of 101.5 degrees fahrenheit. He denied any nausea or vomiting, diarrhea, constipation, hematochezia, melena, dysuria, hematuria, chest pain, or SOB prior to and at the time of admission. Upon presenting to the ED lab work revealed leukocytosis, he was prescribed NPO, IVF, IV piperacillin/tazobactam, acetaminophen, and hydromorphone. Acetaminophen and hydromorphone were then discontinued secondary to minimal pain relief, and he was then prescribed IV morphine PRN, which significantly decreased his LLQ pain. An abdominal and pelvic CT was performed in the ED, which showed evidence of distal descending colon diverticulitis with a microperforation. He was then scheduled for a surgery consult, and he states that the perforation is currently being monitored before a decision is made. He states that he is scheduled to meet with a surgeon this afternoon to reassess the option of surgery. Since his admission, he states that his LLQ has significantly decreased, but he does admit to generalized abdominal discomfort secondary to bloating. Dante also states that he will be receiving a colonoscopy within the next few months. He notes a FHx (aunt) of a non-cancerous colonic tumor. Dante notes that he is not currently taking any medication for his HTN. He states that he was previously on lisinopril and furosemide, but he denies any improvement in his BP while taking them. Due to the lack of improvement, he discontinued the medications, but he states that he is interested in following up with his PCP regarding a different medication option. He states that he checks his BP at home about once every 2 weeks, and he says that it is usually about 150/98. He notes that he has recently eliminated soda from his diet, which resulted in an intentional 20-pound weight loss. He admits to being able to tell when his BP is elevated due to blurry vision and headaches. Allergies Allergy/AdvReac Type Severity Reaction Status Date / Time diphenhydramine Allergy Unknown Hives Unverified 06/16/19 20:55 iodine Allergy Unknown Rash,Itchin Unverified 06/16/19 20:55 g Home Medications Home Medications Medication Instructions Recorded Confirmed Type fexofenadine [Neela Allergy] 180 mg PO DAILY 06/16/19 06/16/19 History Patient History Medical History No significant past medical history Social History Preferred Language: Pakistani Communication Ability: Effective Beliefs That Will Affect Care: None Current Living Situation: Spouse Feels Safe at Home: Yes Smoking Status: Former smoker Hx Alcohol Use: Yes Alcohol type: beer Hx Substance Use: No Review of Systems + fever, + anorexia and + weight loss (intentional 20 pounds in last few months secondary to dietary modification) + diplopia (since childhood) and + decreased night vision + dyspnea on exertion (1 flight of stairs); no cough, no dyspnea and no pain on inspiration no chest pain, no orthopnea, no palpitations and no edema as per Subjective / HPI + as per Subjective / HPI Physical Exam Vital Signs (Past 24 Hours) Last Vital Signs Temp 37.5 C 06/17/19 07:24 Pulse 92 H 06/17/19 08:00 Resp 18 06/17/19 07:24 BP 150/97 H 06/17/19 07:24 Pulse Ox 94 06/17/19 07:24 Constitutional well developed and well nourished; no acute distress Neck normal visual inspection Respiratory normal respiratory effort, lungs clear to auscultation Cardiovascular RRR, no murmur, no edema Palpation: normal PMI; S3 nonpalpable Vessels: posterior tibial pulses present and dorsalis pedis pulses present; no carotid bruit and no abdominal aortic bruit Gastrointestinal (Abdomen) Inspection/Auscultation: abdomen normal to inspection, + abdomen distended and normal bowel sounds Percussion/Palpation: + abdomen tender (Mild, LLQ ) and + tympanic to percussion; no guarding and no hepatosplenomegaly Results & Data Medications Administered Fexofenadine HCl (Neela) 180 mg PO DAILY RICHAR Stop: 07/17/19 08:59 Last Admin: 06/17/19 07:59 Dose: 180 mg Documented by: [id number] Lactated Ringer's (Lr) 1,000 mls @ 125 mls/hr IV .Q8H RICHAR Stop: 07/17/19 00:49 Last Admin: 06/17/19 07:59 Dose: 125 mls/hr Documented by: [id number] Infusion: 06/17/19 07:59 Dose: 125 mls/hr Documented by: [id number] Admin: 06/17/19 01:18 Dose: 125 mls/hr Documented by: [id number] Acetaminophen (Ofirmev) 1,000 mg in 100 mls @ 400 mls/hr IV Q8H PRN PRN Reason: pain/fever Stop: 07/17/19 00:49 Last Admin: 06/17/19 10:21 Dose: 400 mls/hr Documented by: [id number] Piperacillin Sod/Tazobactam (Sod 4.5 gm/ Dextrose) 120 mls @ 30 mls/hr IV Q8H [facility]; Protocol Stop: 06/27/19 03:59 Last Infusion: 06/17/19 07:51 Dose: 0 mls/hr Documented by: [id number] Admin: 06/17/19 03:35 Dose: 30 mls/hr Documented by: [id number] Ioversol (Optiray 320 100ml) 89 ml IV ONCE PRN PRN Reason: Interaction Checking Stop: 06/20/19 21:44 Last Admin: 06/16/19 21:46 Dose: 89 ml Documented by: [id number] Morphine Sulfate (Morphine Sulfate) 2 mg IV Q3H PRN PRN Reason: Pain Stop: 07/01/19 00:49 Last Admin: 06/17/19 02:59 Dose: 2 mg Documented by: [id number]
[2019-06-18] MEDS: LACTATED RINGER'S 1,000 ML IV SCH (00:39)
[2019-06-18] MEDS: PIPERACILLIN/TAZOBACTAM 4.5 GM in DEXTROSE 5% 100 ML IV SCH ×3 (04:28→21:00)
[2019-06-18 07:18] LABS: Basophils # (auto) 0.02 K/uL (0-0.2); Basophils % (auto) 0.2 %; Eosinophils # (auto) 0.22 K/uL (0-0.5); Eosinophils % (auto) 2.2 %; Hematocrit (blood only) 42.3 % (42-52); Immature Granulocytes # (auto) 0.03 K/uL (0.00-0.02); Immature Granulocytes % (auto) 0.3 %; Lymphocytes % (auto) 10.8 %; Mean Corpuscular Hgb Conc 33.1 g/dL (32-36); Mean Corpuscular Volume 82.3 fL (80-100); Mean Platelet Volume 10.6 fL (7.4-10.4); Monocytes # (auto) 0.84 K/uL (0.11-0.59); Monocytes % (auto) 8.3 %; Neutrophils # (auto) 7.96 K/uL (1.4-6.5); Neutrophils % (auto) 78.2 %; Platelet Count 193 K/uL (130-400); RDW Coefficient of Variation 14.5 % (11.5-14.5); RDW Standard Deviation 44.1 fL (36.4-46.3); Red Blood Count 5.14 M/uL (4.7-6.1); White Blood Count 10.17 K/uL (4.8-10.8)
[2019-06-18 07:45] LABS: BUN Creatinine Ratio 9.6 (10-20); Calcium 8.8 mg/dl (8.5-10.1); Creatinine Clr Calc Pharmacy 123.7 ml/min; Est GFR (Non-African American) 101.8; Potassium 3.6 mmol/L (3.5-5.1)
[2019-06-18] MEDS: ACETAMINOPHEN 1,000 MG/100 ML VIAL IV PRN ×2 (07:52→17:31)
[2019-06-18 07:56] LABS: Estimated Average Glucose 128 mg/dl; Hemoglobin A1C 6.1 % (4.5-5.6)
--- NOTE | 2019-06-18 08:06 | Medical Student Progress Note ---
Date of Service June 18, 2019 Rhiannon Wilson is a 49 y/o M who presented to [facility] ED on June 16 with complaints of constant LLQ pain. Clinical evaluation and an abdominal/pelvic CT led to the diagnosis of distal descending colon diverticulitis with a microperforation. Today, Steve states that he still has mild discomfort in his LLQ but that he would not describe it as painful. He also endorses abdominal bloating and generalized discomfort, but he states that the bloating has decreased compared to yesterday. He notes that he is passing gas regularly, but he denies having a bowel movement since his admission. He has remained NPO, and he states that his appetite has increased compared to yesterday. He states that he is urinating regularly without discomfort or any abnormalities. He also denies any peripheral edema, chest pain, or dyspnea, but he does endorse a bilateral band-like headache. He states that he had a surgical consult yesterday afternoon to address the colonic microperforation, which resulted in the decision to pursue conservative treatment. He is currently being administered IV piperacillin/tazobactam (120 mls @ 30 mls/hr Q8H), and he is taking acetaminophen PRN. He states that he has not requested morphine since June 17 at 4:00 PM, and he says that it is no longer needed due to his decreased pain level. Lab work showed continued elevation of blood glucose (107 mg/dl), and an HbA1c ordered, which was 6.1%. Physical Exam Constitutional: WD/WN, vitals as above Respiratory: normal respiratory effort, lungs clear to auscultation normal respiratory effort Cardiovascular: RRR, no murmur, no edema Vessels: normal peripheral pulses; no carotid bruit Gastrointestinal (Abdomen): Inspection/Auscultation: abdomen normal to inspection, + abdomen distended and normal bowel sounds Percussion/Palpation: + abdomen tender (mild tenderness to deep palpation in LLQ); no guarding, abdomen not rigid and no hepatosplenomegaly Skin: no rashes, warm and dry Results & Data Medications Administered Fexofenadine HCl (Neela) 180 mg PO DAILY RICHAR Stop: 07/17/19 08:59 Last Admin: 06/17/19 07:59 Dose: 180 mg Documented by: [id number] Acetaminophen (Ofirmev) 1,000 mg in 100 mls @ 400 mls/hr IV Q8H PRN PRN Reason: pain/fever Stop: 07/17/19 00:49 Last Admin: 06/18/19 07:52 Dose: 400 mls/hr Documented by: [id number] Infusion: 06/17/19 18:31 Dose: 0 mls/hr Documented by: [id number] Admin: 06/17/19 18:09 Dose: 400 mls/hr Documented by: [id number] Infusion: 06/17/19 10:57 Dose: 0 mls/hr Documented by: [id number] Admin: 06/17/19 10:21 Dose: 400 mls/hr Documented by: [id number] Piperacillin Sod/Tazobactam (Sod 4.5 gm/ Dextrose) 120 mls @ 30 mls/hr IV Q8H RICHAR; Protocol Stop: 06/27/19 03:59 Last Admin: 06/18/19 04:28 Dose: 30 mls/hr Documented by: [id number] Infusion: 06/17/19 23:27 Dose: 0 mls/hr Documented by: [id number] Admin: 06/17/19 19:56 Dose: 30 mls/hr Documented by: [id number] Infusion: 06/17/19 15:00 Dose: 0 mls/hr Documented by: [id number] Admin: 06/17/19 11:48 Dose: 30 mls/hr Documented by: [id number] Infusion: 06/17/19 07:51 Dose: 0 mls/hr Documented by: [id number] Admin: 06/17/19 03:35 Dose: 30 mls/hr Documented by: [id number] Ioversol (Optiray 320 100ml) 89 ml IV ONCE PRN PRN Reason: Interaction Checking Stop: 06/20/19 21:44 Last Admin: 06/16/19 21:46 Dose: 89 ml Documented by: [id number] Morphine Sulfate (Morphine Sulfate) 2 mg IV Q3H PRN PRN Reason: Pain Stop: 07/01/19 00:49 Last Admin: 06/17/19 16:27 Dose: 2 mg Documented by: [id number] Admin: 06/17/19 02:59 Dose: 2 mg Documented by: [id number]
[2019-06-18] MEDS: FEXOFENADINE HCL 180 MG TAB PO SCH (09:58)
--- NOTE | 2019-06-18 10:33 | Surgery Progress Note ---
Date of Service June 18, 2019 Assessment & Plan (1) Diverticulitis of intestine with perforation: 49 year-old male presented to emergency department with 1 day history of LLQ abdominal pain and associated fevers on 06/16/19. CT scan showing distal descending diverticulitis with microperforation however no abscess. Febrile on admission, tachycardic, and leukocytosis of 12K. Pain improved today but still feeling bloated. Passing flatus. Leukocytosis resolved. Febrile last night tmax of 38.1, afebrile this morning. Abdomen is distended but soft, tender in LLQ no peritonitis or rigidity. Plan: Continue conservative treatment: IV fluids, IV Zosyn, IV Zofran prn nausea, and IV Pain medications as needed Continue clear liquids for today, if does really well could consider full liquids for dinner Will need outpatient colonoscopy in 6-8 weeks Will continue to follow Dr. Lea was present during my examination and agrees with above. Subjective feeling better today mild soreness in LLQ but improved compared to yesterday still feeling slightly bloated passing flatus tolerated clear liquids last night and this morning no bowel movement yet had fever last night but nothing this morning Physical Exam Constitutional: WD/WN, vitals as above no acute distress Gastrointestinal (Abdomen): Inspection/Auscultation: abdomen normal to inspection and + abdomen distended (mild) Percussion/Palpation: + abdomen tender (very mild tenderness on deep palpation of LLQ, improved) and abdomen soft; no guarding and abdomen not rigid Skin: no rashes, warm and dry Psychiatric: A+Ox3, euthymic affect Results & Data Vital Signs (Past 12 Hours) Vital Signs Temp Pulse Resp BP BP Pulse Ox 06/18/19 07:30 37.0 C 92 H 18 156/97 H 94 06/18/19 00:38 145/81 H 06/17/19 23:20 36.9 C 81 16 156/101 H 93 Laboratory Results 06/18/19 06/18/19 06/18/19 Range/Units 06:47 06:47 06:47 WBC 10.17 (4.8-10.8) K/uL RBC 5.14 (4.7-6.1) M/uL Hgb 14.0 (14.0-18.0) g/dL Hct 42.3 (42-52) % MCV 82.3 (80-100) fL MCH 27.2 (25-34) pg MCHC 33.1 (32-36) g/dL RDW Std Deviation 44.1 (36.4-46.3) fL RDW Coeff of Rangel 14.5 (11.5-14.5) % Plt Count 193 (130-400) K/uL MPV 10.6 H (7.4-10.4) fL Immature Gran % (Auto) 0.3 % Neut % (Auto) 78.2 % Lymph % (Auto) 10.8 % [place] % (Auto) 8.3 % Eos % (Auto) 2.2 % Baso % (Auto) 0.2 % Immature Gran # (Auto) 0.03 H (0.00-0.02) K/uL Neut # (Auto) 7.96 H (1.4-6.5) K/uL Lymph # (Auto) 1.10 L (1.2-3.4) K/uL [place] # (Auto) 0.84 H (0.11-0.59) K/uL Eos # (Auto) 0.22 (0-0.5) K/uL Baso # (Auto) 0.02 (0-0.2) K/uL Sodium 141 (136-145) mmol/L Potassium 3.6 (3.5-5.1) mmol/L Chloride 106 (98-107) mmol/L Carbon Dioxide 27 (21-32) mmol/L Anion Gap 8.0 (3-11) BUN 8 (7-18) mg/dl Creatinine 0.86 (0.6-1.4) mg/dl Est Cr Clr Drug Dosing 123.7 ml/min Est GFR ( Amer) 118.0 Est GFR (Non-Af Amer) 101.8 BUN/Creatinine Ratio 9.6 L (10-20) Glucose 107 H (70-99) mg/dl Estimat Average Glucose 128 mg/dl Hemoglobin A1c 6.1 H (4.5-5.6) % Calcium 8.8 (8.5-10.1) mg/dl (1) Diverticulitis of intestine with perforation Diverticulitis bleeding: unspecified bleeding status Diverticulitis site: unspecified part of intestinal tract Qualified Code(s): K57.80 - Diverticulitis of intestine, part unspecified, with perforation and abscess without bleeding
--- NOTE | 2019-06-18 13:21 | Family Medicine Progress Note ---
Date of Service June 18, 2019 Assessment & Plan (1) Diverticulitis of intestine with perforation: Mr. Lake is a 49-year-old male with history of hypertension, seasonal allergies, L4-L5 degenerative disc disease who presented to [facility] with a 1 day history of left lower quadrant abdominal pain. He was found to have distal descending colon diverticulitis with evidence of microperforation, no abscess Sepsis secondary to distal descending colon diverticulitis with microperforation - initially presented with a fever to 38.7, WBC 12.5, and tachycardia - CT abdomen: Distal descending colon diverticulitis with microperforation, no abscess - Started on Zosyn in the ED, continue IV abx today -> transition to augmentin tomorrow to complete a total of 10 days of abx - Zofran as needed for nausea - Tylenol IV and morphine as needed for pain -> pt has only used 2 doses of morphine since admission - tolerating clear liquid diet well - advance to full liquid for dinner - IVF discontinued this AM - afebrile since 4PM yesterday, abdominal pain improving - general surgery consulted, thank you for recommendations -> continue conservative treatment -> outpatient colonoscopy in 6-8 weeks History of daily alcohol use - Drinks 1-2 beers per day, no history of alcohol withdrawals in the past - Not started on alcohol withdrawal protocol this time, continue to monitor Hypertension - not currently on medications for this. Patient reports being on medications in the past, but he stopped taking them - outpatient f/u as states his home BPs are usually 150s systolic, and would therefore benefit from treatment Prediabetes -sugars found to be high on admission -HbA1c was 6.1% -pt has recently initiated lifestyle changes and has lost approx 20 pounds, continue to encourage lifestyle changes to hopefully prevent progression to overt diabetes Allergies - Continue home Neela DVT prophylaxis: SCDs, encourage ambulation, low risk Code: Full Disposition: Remains on med/surg. Anticipate discharge tomorrow. (2) HTN (hypertension): (3) Allergies: Supervising Physician Co-Signing Physician Notes Resident Physician Supervision Note: I independently interviewed and examined the patient and verified the guajardo history and physical, reviewed labs and image studies, discussed the case with the resident Dr. Valencia and agree with the findings and care plan. Subjective Mr. Lake reports he is feeling well. He states he does feel bloated, but reports an improvement in his abdominal pain. He has been tolerating his clear liquid diet without any difficulties. No fevers overnight. Notes he has a mild headache, but otherwise no complaints. Review of Systems Constitutional: no fever and no chills Respiratory: no cough Cardiovascular: no chest pain and no dyspnea Gastrointestinal: + bloating; no abdominal pain, no nausea, no vomiting and no change in bowel habits Genitourinary: no dysuria, no urinary frequency and no urinary hesitancy Physical Exam Constitutional: WD/WN, vitals as above Respiratory: normal respiratory effort, lungs clear to auscultation Cardiovascular: RRR, no murmur, no edema Gastrointestinal (Abdomen): Inspection/Auscultation: + abdomen distended Percussion/Palpation: abdomen soft; abdomen nontender, no guarding and abdomen not rigid Skin: no rashes, warm and dry Results & Data Vital Signs (Past 12 Hours) Vital Signs Temp Pulse Resp BP Pulse Ox 06/18/19 07:30 37.0 C 92 H 18 156/97 H 94 PG Care Time/CCT Total # of Minutes Spent Total Time Spent with Patient: Total time spent is greater than 50% in coordination of care (as documented) at patient's floor/unit and/or counseling patient: Resident Activity Tracking Resident Involvement: Resident Care Provided Care Provided: Adult Hospital Medicine (1) Diverticulitis of intestine with perforation Diverticulitis bleeding: unspecified bleeding status Diverticulitis site: unspecified part of intestinal tract Qualified Code(s): K57.80 - Diverticulitis of intestine, part unspecified, with perforation and abscess without bleeding
[2019-06-19] MEDS: PIPERACILLIN/TAZOBACTAM 4.5 GM in DEXTROSE 5% 100 ML IV SCH (05:00)
--- NOTE | 2019-06-19 07:00 | Discharge Summary ---
Date of Service June 19, 2019 Admission HPI Per Admitting Provider Steve Lake is a 49 y/o male who with a Hx of uncontrolled HTN who presented to [facility] ED on June 16 complaining of acute-onset LLQ pain. He states that the pain began while at work and gradually worsened throughout the day. He states that the pain became constant and localized to the LLQ without radiation. He also states that he developed chills and a fever of 101.5 degrees fahrenheit. He denied any nausea or vomiting, diarrhea, constipation, hematochezia, melena, dysuria, hematuria, chest pain, or SOB prior to and at the time of admission. Upon presenting to the ED lab work revealed leukocytosis, he was prescribed NPO, IVF, IV piperacillin/tazobactam, acetaminophen, and hydromorphone. Acetaminophen and hydromorphone were then discontinued secondary to minimal pain relief, and he was then prescribed IV morphine PRN, which significantly decreased his LLQ pain. An abdominal and pelvic CT was performed in the ED, which showed evidence of distal descending colon diverticulitis with a microperforation. He was then scheduled for a surgery consult, and he states that the perforation is currently being monitored before a decision is made. He states that he is scheduled to meet with a surgeon this afternoon to reassess the option of surgery. Since his admission, he states that his LLQ has significantly decreased, but he does admit to generalized abdominal discomfort secondary to bloating. Steve also states that he will be receiving a colonoscopy within the next few months. He notes a FHx (aunt) of a non-cancerous colonic tumor. Steve notes that he is not currently taking any medication for his HTN. He states that he was previously on lisinopril and furosemide, but he denies any improvement in his BP while taking them. Due to the lack of improvement, he discontinued the medications, but he states that he is interested in following up with his PCP regarding a different medication option. He states that he checks his BP at home about once every 2 weeks, and he says that it is usually about 150/98. He notes that he has recently eliminated soda from his diet, which resulted in an intentional 20-pound weight loss. He admits to being able to tell when his BP is elevated due to blurry vision and headaches. Admission Exam Per Admitting Provider General: In NAD HEENT: moist mucous membranes Neuro: A&O x 4 Pulm: CTAB equal breath sounds bilaterally CV: RRR, no m/r/g Abdomen:+BS, L sided abdominal TTP > over LLQ region, tympanic and somewhat distended, no rebound tenderness LE: no LE edema, no calf TTP Principal Diagnosis Diverticulitis Discharge Exam Constitutional WD/WN, vitals as above Respiratory normal respiratory effort, lungs clear to auscultation Cardiovascular RRR, no murmur, no edema Gastrointestinal (Abdomen) Inspection/Auscultation: + abdomen distended Percussion/Palpation: abdomen soft; abdomen nontender, no guarding and abdomen not rigid Skin no rashes, warm and dry Discharge Data Allergies Allergy/AdvReac Type Severity Reaction Status Date / Time diphenhydramine Allergy Unknown Hives Unverified 06/20/19 17:01 iodine Allergy Unknown Rash,Itchin Unverified 06/20/19 17:01 g Consultations 06/16/19 22:31 ED Decision to Admit Stat 06/17/19 00:50 Consult General Surgery Routine Ordered Studies 06/16/19 20:21 CT abd pelvis IV con only Stat Hospital Course (1) Diverticulitis of intestine with perforation: Mr. Lake is a 49-year-old male with history of hypertension, seasonal allergies, L4-L5 degenerative disc disease who presented to [facility] with a 1 day history of left lower quadrant abdominal pain. He was found to have distal descending colon diverticulitis with evidence of microperforation, no abscess Sepsis secondary to distal descending colon diverticulitis with microperforation - initially presented with a fever to 38.7, WBC 12.5, and tachycardia - CT abdomen: Distal descending colon diverticulitis with microperforation, no abscess - Treated with IV Zosyn whilst in the hospital, and transitioned to augmentin on discharge to complete a total of 10 days of abx - tolerating a low fiber diet prior to d/c - afebrile, abdominal pain resolved - general surgery consulted -> recommended conservative treatment -> outpatient colonoscopy in 6-8 weeks History of daily alcohol use - Drinks 1-2 beers per day, no history of alcohol withdrawals in the past - Not started on alcohol withdrawal protocol Hypertension - not currently on medications for this. Patient reports being on medications in the past, but he stopped taking them - outpatient f/u as states his home BPs are usually 150s systolic, and would therefore benefit from treatment Prediabetes -sugars found to be high on admission -HbA1c was 6.1% -pt has recently initiated lifestyle changes and has lost approx 20 pounds, continue to encourage lifestyle changes to hopefully prevent progression to overt diabetes Allergies - Continue home Neela (2) HTN (hypertension): (3) Allergies: Total Time Total Time Spent Total Time Spent (In Minutes): 30 Discharge Plan Discharge Items Patient Disposition: Home - Self-Care Reason For Visit: DIVERICULITIS WITH MICROPERFORATION Discharge Diagnosis: Diverticulitis Discharge Goals: Decrease discomfort, Improve disease control and Improve function Activity: Resume your previous activity Non-emergency contact: Primary Care Provider Call non-emergency contact if: you have any medication questions, your symptoms worsen, your pain is worsening and you have a fever Follow-up/Referrals: Derrick Armenta MD [Primary Care Provider] - 06/27/19 2:30 pm (Please, follow up with Dr. Armenta on June 27 at 2:30 pm. *If you need to change this appointment, call the office at [phone].) Diet: Low Fiber Addtl Provider Instructions: Mr. Lake, you were admitted to [facility] due to diverticulitis, inflammation of part of your bowels. You were seen by our general surgery team, who felt that you could be managed with medications, did not require surgery. We treated you with IV antibiotics, bowel rest, and slowly advanced your diet. Please continue to eat a LOW fiber diet while you are recovering from your illness. You can then transition to a high fiber diet after 1-2 weeks, when you are feeling better, to hopefully prevent further episodes of diverticulitis. We also recommend that you have a colonoscopy in 6-8 weeks, once you have recovered. We will be discharging you home with an antibiotic to take for the next 7 days, called Augmentin. Please take this with food to minimize stomach upset. With regards to your blood pressure - we recommend discussing the possibility of needing to take medications with your family doctor. Your HbA1c (shelter measure of sugar control) was 6.1%, which indicates prediabetes. You can prevent this from progressing to diabetes by continuing your dietary changes, as well as exercising regularly. Congratulations on your weight loss achievements - keep this up! If you have a fever, worsening abdominal pain, or vomiting, please seek medical attention. Otherwise, you can follow up with your family doctor - an appointment has been made for you and is listed above. Prescriptions: New amoxicillin-pot clavulanate [Augmentin] 875-125 mg tablet 1 tab PO TID 7 Days Qty: 21 RF: 0 Continued atorvastatin [Lipitor] 40 mg tablet 40 mg PO HS RF: 0 fexofenadine [Neela Allergy] 180 mg Tablet 180 mg PO DAILY RF: 0 Discontinued amlodipine 5 mg tablet 5 mg PO DAILY RF: 0 irbesartan 300 mg tablet 300 mg PO DAILY RF: 0 Stand-Alone Forms: Call Back Authorization, On License Of [facility], Work/School Release (Inpt) Krajosefa/Other Patient Handouts: Prediabetes, Diabetes Meal Planning Discharge Orders: Discharge Order (Routine); Ordered 06/19/19 Ordered By: Manuel Valencia Admission Data Admit Date/Time: 06/16/19 23:17 Attending Provider: Julianna Harvey Admit Provider: Harish Bautista Primary Care Provider: Derrick Armenta Other Providers: Harish Bautista ; Hima Lea Service: Medical Other Interventions: Discharge Summary Assessment (RN) Last Done: 06/19/19 11:33 DC Date/Time DO NOT enter until pt leaves facility: 06/19/19 13:26 Supervising Physician Co-Signing Physician Notes Resident Physician Supervision Note: I independently interviewed and examined the patient and verified the guajardo history and physical, reviewed labs and image studies, discussed the case with the resident Dr. Patterson and agree with the findings and care plan. Time spent in discharge 35 min Resident Activity Tracking Resident Involvement: Resident Care Provided Care Provided: Adult Hospital Medicine
[2019-06-19] MEDS: ACETAMINOPHEN 1,000 MG/100 ML VIAL IV PRN (07:03)
[2019-06-19 07:41] LABS: Creatinine Clr Calc Pharmacy 114.4 ml/min; Est GFR (African American) 111.3; Est GFR (Non-African American) 96.1
[2019-06-19] MEDS: FEXOFENADINE HCL 180 MG TAB PO SCH (09:02)
--- NOTE | 2019-06-19 10:42 | Surgery Progress Note ---
Date of Service June 19, 2019 Assessment & Plan (1) Diverticulitis of intestine with perforation: 49 year-old male presented to emergency department with 1 day history of LLQ abdominal pain and associated fevers on 06/16/19. CT scan showing distal descending diverticulitis with microperforation however no abscess. Febrile on admission, tachycardic, and leukocytosis of 12K. Passing flatus. Leukocytosis resolved. afebrile. Abdominal pain resolved. Plan: Advance to low fiber diet Transition to oral antibiotics on discharge okay from surgical standpoint for discharge today Will need outpatient colonoscopy in 6-[address] Lea was present during my examination and agrees with above. Subjective feeling better, passing more gas, feeling less bloated tolerated full liquids no abdominal pain no n/v no fevers Physical Exam Constitutional: WD/WN, vitals as above no acute distress Respiratory: no respiratory distress Gastrointestinal (Abdomen): Inspection/Auscultation: abdomen normal to inspection; abdomen not distended Percussion/Palpation: abdomen soft; abdomen nontender, no guarding and abdomen not rigid Skin: no rashes, warm and dry Psychiatric: A+Ox3, euthymic affect Results & Data Vital Signs (Past 12 Hours) Vital Signs Temp Pulse Pulse Resp BP Pulse Ox 06/19/19 08:00 36.9 C 82 12 126/81 94 06/18/19 23:39 36.8 C 79 16 130/87 94 (1) Diverticulitis of intestine with perforation Diverticulitis bleeding: unspecified bleeding status Diverticulitis site: unspecified part of intestinal tract Qualified Code(s): K57.80 - Diverticulitis of intestine, part unspecified, with perforation and abscess without bleeding
== END 2019-06-19 13:26 | disposition home or self-care (01) | DRG 872 ==
LOC: ED 20:09 → 2E 23:17 → SUATTDRO 23:17 → 2E 06-17 00:32 → 3N 06-17 14:36
DX: Z96.652 Presence of left artificial knee joint; Z96.641 Presence of right artificial hip joint; Z88.8 Allergy status to other drugs, medicaments and biological substances; A41.9 Sepsis, unspecified organism; K57.20 Diverticulitis of large intestine with perforation and abscess without bleeding; M51.36 Other intervertebral disc degeneration, lumbar region; Z87.891 Personal history of nicotine dependence; Z72.89 Other problems related to lifestyle; I10 Essential (primary) hypertension; R73.03 Prediabetes